=== PATIENT | female | born 1965 | race Caucasian/White ===

== ENCOUNTER 2017-05-10 12:46 | Emergency (ER) | payer BC, OTHER ==
[2017-05-10] MEDS: predniSONE 20 MG TAB PO (15:19)
[2017-05-10] MEDS: ALBUTEROL 0.083% (NEB) 2.5 MG/3 ML AMP NEB (15:24)
[2017-05-10] MEDS: IPRATROPIUM (NEB) 0.5 MG/2.5 ML AMP NEB (15:24)
== END 2017-05-10 16:44 | disposition home or self-care (01) ==
LOC: FTE 12:46
DX: R05 Cough (principal); R07.89 Other chest pain
CPT/HCPCS: 71045; 93005; 94664; 99284-25

== ENCOUNTER 2017-06-13 15:47 | Emergency (ER) | payer BC ==
[2017-06-13] MEDS: LORAZEPAM 1 MG TAB PO (17:52)
[2017-06-13] MEDS: KETOROLAC 30 MG INJ IM (17:52)
== END 2017-06-13 19:03 | disposition home or self-care (01) ==
LOC: FTE 15:47
DX: M54.2 Cervicalgia (principal); R07.9 Chest pain, unspecified; M54.9 Dorsalgia, unspecified
CPT/HCPCS: 71045; 72040; 96372; 99284-25

== ENCOUNTER 2018-03-27 16:23 | Emergency (ER) | payer BC ==
[2018-03-27] MEDS: KETOROLAC 30 MG INJ IM (19:44)
[2018-03-27 19:46] LABS: ADD MAN DIFF? NO
[2018-03-27 19:48] LABS: BASOPHILS % 0.5 % (0.0-2.0); EOSINOPHILS # 0.3 10^3/ul (0.0-0.5); HEMATOCRIT 43.9 % (37.0-47.0); HEMOGLOBIN 14.5 g/dl (12.0-16.0); LYMPHOCYTES # 2.4 10^3/ul (0.8-2.9); LYMPHOCYTES % 29.5 % (15.0-51.0); MEAN CORPUSCULAR HEMOGLOBIN 30.5 pg (29.0-33.0); MEAN CORPUSCULAR VOLUME 92.2 fl (82.0-101.0); MEAN PLATELET VOLUME 10.6 fl (7.4-10.4); MONOCYTE # 0.7 10^3/ul (0.3-0.9); MONOCYTES % 8.2 % (0.0-11.0); NEUTROPHIL # 4.8 10^3/ul (1.6-7.5); NEUTROPHILS % 58.4 % (39.0-77.0); PLATELET COUNT 298 10^3/UL (140-415); RED BLOOD COUNT 4.76 10^6/ul (4.20-5.40); RED CELL DISTRIBUTION WIDTH 12.9 % (11.5-14.5)
[2018-03-27 19:48] LABS: WHITE BLOOD COUNT 8.3 10^3/ul (4.8-10.8)
[2018-03-27 20:03] LABS: ADD UMIC YES; UR ASCORBIC ACID NEGATIVE (NEGATIVE); UR BILIRUBIN (Dip) NEGATIVE (NEGATIVE); UR BLOOD (Dip) 2+ mg/dL (NEGATIVE); UR CLARITY CLEAR (CLEAR); UR COLOR YELLOW (YELLOW); UR GLUCOSE (Dip) NEGATIVE (NEGATIVE); UR KETONES (Dip) NEGATIVE (NEGATIVE); UR LEUKOCYTE ESTERASE (Dip) NEGATIVE Leu/ul (NEGATIVE); UR NITRITE (Dip) NEGATIVE (NEGATIVE); UR RBC 1 /HPF (0-5); UR TOTAL PROTEIN (Dip) NEGATIVE (NEGATIVE); UR UROBILINOGEN (Dip) NEGATIVE (NEGATIVE); UR WBC 1 /HPF (0-5)
[2018-03-27 20:05] LABS: ALANINE AMINOTRANSFERASE 34 IU/L (13-69); ALBUMIN 4.8 g/dl (3.3-4.9); ALBUMIN/GLOBULIN RATIO 1.29; ALKALINE PHOSPHATASE 90 IU/L (42-121); ANION GAP 10 (5-13); ASPARTATE AMINO TRANSFERASE 31 IU/L (15-46); BILIRUBIN,INDIRECT 0.1 mg/dl (0-1.1); BILIRUBIN,TOTAL 0.1 mg/dl (0.2-1.3); BLOOD UREA NITROGEN 12 mg/dl (7-20); CALCIUM 9.8 mg/dl (8.4-10.2); CARBON DIOXIDE 25 mmol/L (21-31); CHLORIDE 105 mmol/L (97-110); CREATININE 0.54 mg/dl (0.44-1.00); Estimated GFR > 60 mL/min (>60); GLUCOSE 90 mg/dl (70-220); LIPASE 56 U/L (23-300); POTASSIUM 3.6 mmol/L (3.5-5.1); SODIUM 140 mmol/L (135-144); TOTAL PROTEIN 8.5 g/dl (6.1-8.1)
[2018-03-27] MEDS ORDERED: LIDOCAINE 1% (MDV) 20 ML INJ (20:51)
[2018-03-27] MEDS: CEFTRIAXONE 1 GM INJ IM (21:07)
== END 2018-03-27 21:27 | disposition home or self-care (01) ==
LOC: FTE 16:23
DX: N39.0 Urinary tract infection, site not specified (principal)
CPT/HCPCS: 36415; 74176; 80053; 81001; 81025; 83690; 85025; 87086; 96372; 99284-25

== ENCOUNTER 2018-09-17 05:45 | Day surgery (SDC) | payer BC ==
[2018-09-17] MEDS ORDERED: FENTAnyl 50 MCG/ML VIAL (09:58)
[2018-09-17] MEDS ORDERED: MIDAZOLAM 1 MG/ML 2 ML INJ (09:58)
[2018-09-17] MEDS ORDERED: ONDANSETRON 4 MG INJ (10:30)
[2018-09-17] MEDS ORDERED: CEFAZOLIN 1 GM INJ (10:30)
[2018-09-17] MEDS ORDERED: PROPOFOL 20 ML (10:30)
[2018-09-17] MEDS ORDERED: LIDOCAINE 2% (SDV) 5 ML INJ (10:30)
[2018-09-17] MEDS ORDERED: ATROPINE 1 MG/10 ML SYRINGE (10:42)
[2018-09-17] MEDS: ATROPINE 1 MG/10 ML SYRINGE IV (10:56)
[2018-09-17] MEDS: HYDROmorphONE 1 MG/5 ML IV SYRINGE IV ×2 (10:56→11:04)
[2018-09-17] MEDS ORDERED: ATROPINE 0.4 MG INJ IV (11:00)
[2018-09-17] MEDS ORDERED: METOCLOPRAMIDE 10 MG INJ IV (11:00)
[2018-09-17] MEDS ORDERED: EPHEDrine 25 MG/5 ML SYG IV (11:00)
[2018-09-17] MEDS ORDERED: ALBUMIN HUMAN 5% 250 ML IV (11:00)
[2018-09-17] MEDS ORDERED: DIPHENHYDRAMINE 50 MG INJ IV (11:00)
[2018-09-17] MEDS ORDERED: FENTAnyl 50 MCG/ML VIAL IV (11:00)
[2018-09-17] MEDS ORDERED: HYDROmorphONE 1 MG/5 ML IV SYRINGE IV (11:00)
[2018-09-17] MEDS: ONDANSETRON 4 MG INJ IV (11:13)
[2018-09-17] MEDS: MEPERIDINE 25 MG INJ IV (11:14)
[2018-09-17] MEDS ORDERED: ACETAMINOPHEN 325 MG TAB PO (11:30)
== END 2018-09-17 12:16 | disposition home or self-care (01) ==
LOC: SDS 05:45
DX: N95.0 Postmenopausal bleeding (principal); D25.9 Leiomyoma of uterus, unspecified
CPT/HCPCS: 58558; 84702; 84703; 86850; 86900; 86901; 88305